=== PATIENT | male | born 1985 | race African-American/Black ===

== ENCOUNTER 2016-08-06 18:15 | Emergency (ER) | payer SELFPAY ==
[~2016-08-06] VITALS: Ht 172.7 cm; Wt 97.5 kg
[2016-08-06 19:41] LABS: BILIRUBIN,URINE NEGATIVE (NEG); GLUCOSE,URINE NEGATIVE (NEG); NITRITE,URINE NEGATIVE (NEG); PH,URINE 6.5; PROTEIN,URINE 30 mg/dL (NEG-TRACE)
[2016-08-06 19:51] LABS: BASO % 0 % (0-3); EOS % 2 % (0-3); HEMOGLOBIN 15.1 g/dL (13.0-17.5); LYMPH # 1.7 x10^3/uL (1.0-4.8); LYMPH % 19 % (24-48); MEAN CORPUSCULAR HEMOGLOBIN 31 pg (25-35); MEAN CORPUSCULAR HGB CONC 34 g/dL (31-37); MEAN CORPUSCULAR VOLUME 89 fL (79-100); MONO % 5 % (0-9); NEUT % 73 % (31-73); PLATELET COUNT 286 x10^3/uL (140-400); RED BLOOD COUNT 4.93 x10^6/uL (4.30-5.70); RED CELL DISTRIBUTION WIDTH 13.1 % (11.5-14.5); WHITE BLOOD COUNT 8.9 x10^3/uL (4.0-11.0)
[2016-08-06 19:54] LABS: BACTERIA,URINE 0 /HPF (0-FEW); SQUAMOUS EPITHELIAL CELL,UR FEW /LPF; WBC,URINE 0 /HPF (0-4)
[2016-08-06 20:04] LABS: CALCIUM 9.6 mg/dL (8.5-10.1); GFR 105.5
[2016-08-06 20:08] LABS: BARBITURATES NEG (NEG); BENZODIAZEPINES NEG (NEG); CANNABINOIDS POS (NEG); COCAINE NEG (NEG); ETHANOL, URINE NEG (NEG); METHADONE NEG (NEG); OPIATES NEG (NEG); PHENCYCLIDINE POS (NEG)
--- NOTE | 2016-08-06 20:51 | RAD ---
PROCEDURE Left elbow, three views. HISTORY Nontraumatic pain to the left elbow. COMPARISON None. FINDINGS There is no dislocation. There is acute fracture of the proximal radial head. The fracture appears traumatic but would correlate with additional history. Two separate longitudinal fracture lines are seen. Fracture is nondisplaced. There is intra-articular extension of the fracture. Small lipohemarthrosis is seen. The mineralization is normal. No soft tissue swelling is seen. IMPRESSION Acute nondisplaced fracture of the proximal radial head. Electronically signed by: Ayush Olson MD (Aug 06, 2016 20:50:17)
[2016-08-06] MEDS ORDERED: NAPROXEN 500 MG TABLET PO ONE (21:45)
[2016-08-06 21:58] VITALS: BP 142/93
[2016-08-06] MEDS ORDERED: BACITRACIN/POLYMYXIN B TOPICAL OINT 15GM TUBE. TP ONE (22:00)
--- NOTE | 2016-08-06 22:53 | ED.ADGEN ---
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 Patient states that he got into a verbal altercation yesterday after work, after which he began drinking and smoking marijuana and PCP. Patient states he drinks of 424 pack of beer or a bottle of liquor daily. He denies experiencing withdrawal symptoms when he stopped raking previously, he states his last drink was this morning, states that he has been in detox previously but it was "years ago". He states that he experienced some agitation and is currently experiencing pain in his left elbow and in his right leg . Patient states that he has a previous fracture in the right leg, and points to 2 small areas of irritation on the right lower extremity where he states he is experiencing pain and swelling. He is not certain how this injury occurred. He initially told the nurse that this occurred a week ago, but he tells me that he first noted it yesterday. He denies striking his head or having any loss of consciousness. Patient's episode of agitation was witnessed by his mother, who is present in the ED at this time. Patient states that he is seeking a detox program for his polysubstance abuse. He denies any chest pain, any shortness breath, any nausea or vomiting, any focal weakness, numbness or tingling, any GI or complaints. Review of Systems Review of Systems Constitutional: Denies fever or chills. [] Eyes: Denies change in visual acuity. [] HENT: Denies nasal congestion or sore throat. [] Respiratory: Denies cough or shortness of breath. [] Cardiovascular: Denies chest pain or edema. [] GI: Denies abdominal pain, nausea, vomiting, bloody stools or diarrhea. [] : Denies dysuria. [] Musculoskeletal: Denies back pain, pain in the left elbow and right lower extremity. Integument: Denies rash. [] Neurologic: Denies headache, focal weakness or sensory changes. [] Endocrine: Denies polyuria or polydipsia. [] Lymphatic: Denies swollen glands. [] Psychiatric: Denies depression or anxiety. [] Current Medications Current Medications Current Medications Medications (Trade) Dose Ordered Sig/Nima Start Time Stop Time Status Last Admin Dose Admin Bacitracin/ Polymyxin B Sulfate (Polysporin) 1 kaylynn 1X ONCE 08/06/16 22:00 08/06/16 22:01 DC 08/06/16 22:02 1 KAYLYNN Naproxen (Naprosyn) 500 mg 1X ONCE 08/06/16 21:45 08/06/16 21:46 DC 08/06/16 21:35 500 MG Allergies Allergies Allergies Coded Allergies Type Severity Reaction Last Updated Verified No Known Drug Allergies 11/21/14 No Physical Exam Physical Exam Constitutional: Well developed, well nourished, slightly anxious in appearance, non-toxic appearance. [] HENT: Normocephalic, atraumatic, bilateral external ears normal, oropharynx moist, no oral exudates, nose normal. [] Eyes: PERRLA, EOMI, conjunctiva normal, no discharge. [] Neck: Normal range of motion, no tenderness, supple, no stridor. [] Cardiovascular:Heart rate regular rhythm, no murmur , S1, S2, no rubs or gallops. [] Lungs & Thorax: Bilateral breath sounds clear to auscultation, no wheezing, rhonchi, rales. No chest wall tenderness or crepitus. [] Abdomen: Bowel sounds normal, soft, no tenderness, no rebound, rigidity, no guarding, no masses, no pulsatile masses. [] Skin: Warm, dry, no erythema, no rash. [] Back: No tenderness, no CVA tenderness. [] Extremities: Patient with tenderness to palpation at the medial elbow, no external signs of trauma, no tenderness to palpation other locations with full range of motion of the hand, wrist and shoulder, patient noted to have 2 small areas with dried skin in place, which are circular in nature, [id number] located in the pretibial region of his distal right leg, appears though they may have been previous insect bites, no evidence of abscess formation, induration, lymphangitisno cyanosis, no clubbing, ROM intact, no edema. [] Neurologic: Alert and oriented X 3, normal motor function, normal sensory function, no focal deficits noted. [] Psychologic: Affect normal, judgement normal, anxious. Current Patient Data Vital Signs Vital Signs Date Time Temp Pulse Resp B/P Pulse Ox O2 Delivery O2 Flow Rate FiO2 08/06/16 20:40 87 145/90 95 Room Air 08/06/16 18:50 97.9 16 97.9 Lab Values Laboratory Tests Test 08/06/16 19:00 08/06/16 19:41 Urine Collection Type Unknown Urine Color Yellow Urine Clarity Clear Urine pH 6.5 Urine Specific [place] 1.020 Urine Protein 30mg/dL (NEG-TRACE) Urine Glucose (UA) Negativemg/dL (NEG) Urine Ketones (Stick) Negativemg/dL (NEG) Urine Blood Small (NEG) Urine Nitrite Negative (NEG) Urine Bilirubin Negative (NEG) Urine Urobilinogen Dipstick 1.0mg/dL (0.2 mg/dL) Urine Leukocyte Esterase Negative (NEG) Urine RBC 3-5/HPF (0-2) Urine WBC 0/HPF (0-4) Urine Squamous Epithelial Cells Few/LPF Urine Bacteria 0/HPF (0-FEW) Urine Mucus Marked/LPF White Blood Count 8.9x10^3/uL (4.0-11.0) Red Blood Count 4.93x10^6/uL (4.30-5.70) Hemoglobin 15.1g/dL (13.0-17.5) Hematocrit 44.0% (39.0-53.0) Mean Corpuscular Volume 89fL (79-100) Mean Corpuscular Hemoglobin 31pg (25-35) Mean Corpuscular Hemoglobin Concent 34g/dL (31-37) Red Cell Distribution Width 13.1% (11.5-14.5) Platelet Count 286x10^3/uL (140-400) Neutrophils (%) (Auto) 73% (31-73) Lymphocytes (%) (Auto) 19% (24-48) L Monocytes (%) (Auto) 5% (0-9) Eosinophils (%) (Auto) 2% (0-3) Basophils (%) (Auto) 0% (0-3) Neutrophils # (Auto) 6.5x10^3uL (1.8-7.7) Lymphocytes # (Auto) 1.7x10^3/uL (1.0-4.8) Monocytes # (Auto) 0.5x10^3/uL (0.0-1.1) Eosinophils # (Auto) 0.2x10^3/uL (0.0-0.7) Basophils # (Auto) 0.0x10^3/uL (0.0-0.2) Sodium Level 142mmol/L (136-145) Potassium Level 4.0mmol/L (3.5-5.1) Chloride Level 105mmol/L (98-107) Carbon Dioxide Level 25mmol/L (21-32) Anion Gap 12 (6-14) Blood Urea Nitrogen 13mg/dL (8-26) Creatinine 1.0mg/dL (0.7-1.3) Estimated GFR (Cockcroft-Gault) 105.5 Glucose Level 84mg/dL (70-99) Calcium Level 9.6mg/dL (8.5-10.1) Urine Opiates Screen Neg (NEG) Urine Methadone Screen Neg (NEG) Urine Barbiturates Neg (NEG) Urine Phencyclidine Screen Pos (NEG) Urine Amphetamine/Methamphetamine Neg (NEG) Urine Benzodiazepines Screen Neg (NEG) Urine Cocaine Screen Neg (NEG) Urine Cannabinoids Screen Pos (NEG) Ethyl Alcohol Level < 10mg/dL (0-10) Urine Ethyl Alcohol Neg (NEG) Laboratory Tests 08/06/16 19:41 Laboratory Tests 08/06/16 19:41 EKG EKG EC: Sinus rhythm, heart rate 86 beats minute, upright axis, QTC of 388, UT 152, QRS of 78, mild baseline artifact noted, no ST elevations or depressions , no evidence of acute ST abnormalities. As interpreted by me. [] Radiology/Procedures Radiology/Procedures [] [facility] [address] [place] [address] IMAGING REPORT Signed PATIENT: WINSOME ARANDA ACCOUNT: [id number] : 1985 LOCATION: ER AGE: 31 SEX: M EXAM STATUS: PRE ER ORD. PHYSICIAN: ALLEN GOODRICH DO REASON: Pain PROCEDURE: ELBOW LEFT 3V PROCEDURE Left elbow, three views. HISTORY Nontraumatic pain to the left elbow. COMPARISON None. FINDINGS There is no dislocation. There is acute fracture of the proximal radial head. The fracture appears traumatic but would correlate with additional history. Two separate longitudinal fracture lines are seen. Fracture is nondisplaced. There is intra-articular extension of the fracture. Small lipohemarthrosis is seen. The mineralization is normal. No soft tissue swelling is seen. IMPRESSION Acute nondisplaced fracture of the proximal radial head. Electronically signed by: Ayush Olson MD (Aug 06, 2016 20:50:17) DICTATED and SIGNED BY: AYUSH OLSON MD DATE: 08/06/162049 CC: ALLEN GOODRICH DO; NO PCP ~ Right tib-fib x-ray: 2 view: Patient with healed fracture of the distal fibula, with a large callus formation, no evidence of acute fracture or subluxation, no evidence of soft tissue abnormalities. As interpreted by me. Left forearm x-ray: 2 view: Patient with noted proximal head fracture which is nondisplaced, no other abnormalities identified. As interpreted by me. Course & Med Decision Making Course & Med Decision Making Pertinent Labs and Imaging studies reviewed. (See chart for details) Patient is denying any suicidal or homicidal ideations, any auditory or visual hallucinations. After discussion at bedside, patient is agreeable to receiving basic laboratory studies, to ensure that he is medically cleared for a detox program. Patient provided urine, and blood specimens, which did not reveal any evidence of acutely concerning findings, aside from his drug screen positive for PCP and marijuana as the patient did report. Patient's alcohol level is less than 10, as stated he has vital signs within normal limits, and is resting completely at this time, less anxious after our discussion and his medical clearance. X-ray reveals acute proximal radial head fracture, no other fractures or other abnormalities identified on patient's imaging, or examination. Findings as above discussed with Dr. Mathew of orthopedics, who recommends sling for the patient, and follow-up with orthopedics. I discussed with the patient, he received naproxen the ED, was placed in a sling with affect. Patient was evaluated by the psychiatric assessment team in the emergency department, and an inpatient detoxification bed was arranged. Regarding patient's right lower shoulder pain, there are 2 small areas of dried skin with mild irritation, no evidence of cellulitis or overlying infection, patient is mildly tender to palpation of the area, he does correspond where he has a large callus from a previous fracture, May discussed with patient that the "nerve" pain that he is experiencing this area is likely consistent with his previous injury. No evidence of a significant infection or other concerning findings identified. Patient voices understanding with this finding, he is agreeable with the plan to be discharged home with his mother, who will then taken to the detox facility for enrollment. He was given clear and detailed return instructions for both his substance abuse and his radial head fracture, discharged home with his mother in stable condition with plan as stated. Dragon Disclaimer Dragon Disclaimer This electronic medical record was generated, in whole or in part, using a voice recognition dictation system. Departure Impression: Primary Impression: Fracture of proximal end of radius Additional Impression: Substance abuse Disposition: 01 HOME, SELF-CARE Condition: IMPROVED Problem Qualifiers ALLEN GOODRICH DO Aug 06, 2016 22:53
--- NOTE | 2016-08-07 06:44 | EKG ---
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
--- NOTE | 2016-08-07 08:40 | RAD ---
Right tibia and fibula, 2 views, 08/06/2016: History: Pain Comparison is made to a study from 12/16/2014. There is an old healed fracture of the distal fibula. There is a prominent ossification involving the interosseous membrane between the distal fibula and tibia. This abundant callus and hypertrophic ossification has developed since the previous exam. No acute fracture or dislocation is identified. Nonspecific subcutaneous edema is noted anterolaterally in the proximal to mid aspect of the lower leg. IMPRESSION: 1. Old posttraumatic changes involving the distal fibula as described above. 2. No acute bony abnormality is detected.
--- NOTE | 2016-08-07 08:58 | RAD ---
Left forearm, 2 views, 08/06/2016: History: Radial head fracture This study is correlated with elbow radiographs from earlier in the day. Again noted is a radial head fracture. No significant displacement is evident. There is only slight depression of a fragment involving the articular surface. No other fracture is identified. There is soft tissue swelling along the posterior aspect of the forearm. IMPRESSION: Acute radial head fracture.
== END 2016-08-06 22:12 | disposition home or self-care (01) ==
LOC: ER 18:15
DX: S52.102A Unspecified fracture of upper end of left radius, initial encounter for closed fracture (principal); F19.10 Other psychoactive substance abuse, uncomplicated; F12.10 Cannabis abuse, uncomplicated; F16.10 Hallucinogen abuse, uncomplicated; M79.89 Other specified soft tissue disorders; X58.XXXA Exposure to other specified factors, initial encounter; Y93.89 Activity, other specified; Y92.89 Other specified places as the place of occurrence of the external cause; Y99.8 Other external cause status
CPT/HCPCS: 36415; 73080; 73090; 73590; 80048; 80305; 80320; 81001; 85027; 93005; G0480; G0481; 99285-25

== ENCOUNTER 2016-08-22 13:59 | Emergency (ER) | payer SELFPAY ==
[~2016-08-22] VITALS: Ht 172.7 cm; Wt 95.3 kg
--- NOTE | 2016-08-22 14:07 | PHYS DOC ---
Past Medical History Past Medical History: No Pertinent History Past Surgical History: Tonsillectomy Alcohol Use: Occasionally Drug Use: Marijuana, Phencyclidine Adult General HPI HPI Patient is a 31 year old -[place] male who presents with status. Cranial EMS he was outside the [facility] on the sidewalk unresponsive. He admits that he was smoking PCP. He denies any other usage to me. When I ask him how he feels he states "I'm just coming down". He states he is on antibiotic for his spider bite on his right leg. Otherwise he states is on no other medications. Review of Systems Review of Systems Constitutional: Denies fever or chills [] Eyes: Denies change in visual acuity, redness, or eye pain [] HENT: Denies nasal congestion or sore throat [] Respiratory: Denies cough or shortness of breath [] Cardiovascular: No additional information not addressed in HPI [] GI: Denies abdominal pain, nausea, vomiting, bloody stools or diarrhea [] : Denies dysuria or hematuria [] Musculoskeletal: Denies back pain or joint pain [] Integument: Denies rash or skin lesions [] Neurologic: Denies headache, focal weakness or sensory changes [] Endocrine: Denies polyuria or polydipsia [] Current Medications Current Medications Current Medications Medications (Trade) Dose Ordered Sig/Nima Start Time Stop Time Status Last Admin Dose Admin Lorazepam (Ativan) 2 mg 1X ONCE 08/22/16 14:15 08/22/16 14:23 DC Olanzapine 5 mg 5 mg 1X ONCE 08/22/16 15:00 08/22/16 15:01 DC Sodium Chloride (Iv Sodium Chloride 0.9% 1000ml Bag) 1,000 ml @ 1,000 mls/hr 1X ONCE 08/22/16 19:00 08/22/16 19:59 DC 08/22/16 18:45 1,000 MLS/HR Allergies Allergies Allergies Coded Allergies Type Severity Reaction Last Updated Verified No Known Drug Allergies 11/21/14 No Physical Exam Physical Exam Constitutional: Well developed, well nourished, no acute distress, non-toxic appearance. [] HENT: Normocephalic, atraumatic, bilateral external ears normal, oropharynx moist, no oral exudates, nose normal. [] Eyes: PERRLA, EOMI, conjunctiva normal, no discharge. [] Neck: Normal range of motion, no tenderness, supple, no stridor. [] Cardiovascular:Heart rate regular rhythm, no murmur [] Lungs & Thorax: Bilateral breath sounds clear to auscultation [] Abdomen: Bowel sounds normal, soft, no tenderness, no masses, no pulsatile masses. [] Skin: Warm, dry, no erythema, no rash. [] Back: No tenderness, no CVA tenderness. [] Extremities: No tenderness, no cyanosis, no clubbing, ROM intact, no edema. [] Neurologic: Alert and responding, normal motor function, normal sensory function , no focal deficits noted. [] Psychologic: Agitated appearing. [] Current Patient Data Vital Signs Vital Signs Date Time Temp Pulse Resp B/P Pulse Ox O2 Delivery O2 Flow Rate FiO2 08/22/16 14:54 102 20 151/91 93 Room Air 08/22/16 13:59 98.6 98.6 Lab Values Laboratory Tests Test 08/22/16 17:20 08/22/16 17:40 White Blood Count 9.0x10^3/uL (4.0-11.0) Red Blood Count 5.07x10^6/uL (4.30-5.70) Hemoglobin 15.4g/dL (13.0-17.5) Hematocrit 46.1% (39.0-53.0) Mean Corpuscular Volume 91fL (79-100) Mean Corpuscular Hemoglobin 30pg (25-35) Mean Corpuscular Hemoglobin Concent 33g/dL (31-37) Red Cell Distribution Width 13.1% (11.5-14.5) Platelet Count 323x10^3/uL (140-400) Neutrophils (%) (Auto) 71% (31-73) Lymphocytes (%) (Auto) 20% (24-48) L Monocytes (%) (Auto) 4% (0-9) Eosinophils (%) (Auto) 4% (0-3) H Basophils (%) (Auto) 1% (0-3) Neutrophils # (Auto) 6.4x10^3uL (1.8-7.7) Lymphocytes # (Auto) 1.8x10^3/uL (1.0-4.8) Monocytes # (Auto) 0.4x10^3/uL (0.0-1.1) Eosinophils # (Auto) 0.3x10^3/uL (0.0-0.7) Basophils # (Auto) 0.1x10^3/uL (0.0-0.2) Urine Collection Type Unknown Urine Color Yellow Urine Clarity Clear Urine pH 6.0 Urine Specific [place] 1.010 Urine Protein Negativemg/dL (NEG-TRACE) Urine Glucose (UA) Negativemg/dL (NEG) Urine Ketones (Stick) Negativemg/dL (NEG) Urine Blood Trace (NEG) Urine Nitrite Negative (NEG) Urine Bilirubin Negative (NEG) Urine Urobilinogen Dipstick 0.2mg/dL (0.2 mg/dL) Urine Leukocyte Esterase Negative (NEG) Urine RBC 0/HPF (0-2) Urine WBC 0/HPF (0-4) Urine Squamous Epithelial Cells Occ/LPF Urine Bacteria 0/HPF (0-FEW) Urine Hyaline Casts Occasional/HPF Urine Mucus Slight/LPF Sodium Level 133mmol/L (136-145) L Potassium Level 4.3mmol/L (3.5-5.1) Chloride Level 98mmol/L (98-107) Carbon Dioxide Level 23mmol/L (21-32) Anion Gap 12 (6-14) Blood Urea Nitrogen 11mg/dL (8-26) Creatinine 1.1mg/dL (0.7-1.3) Estimated GFR (Cockcroft-Gault) 94.5 Glucose Level 90mg/dL (70-99) Calcium Level 9.8mg/dL (8.5-10.1) Magnesium Level 2.1mg/dL (1.8-2.4) Total Bilirubin 0.5mg/dL (0.2-1.0) Direct Bilirubin 0.2mg/dL (0.0-0.2) Aspartate Amino Transferase (AST) 72U/L (15-37) H Alanine Aminotransferase (ALT) 28U/L (16-63) Alkaline Phosphatase 151U/L (46-116) H Ammonia 17mcmol/L (11-34) Creatine Kinase 3346U/L (39-308) H Creatine Kinase MB (Mass) 5.8ng/mL (0.0-3.6) H Creatine Kinase MB Relative Index 0.2% (0-4) Troponin I Quantitative < 0.017ng/mL (0.000-0.055) CY-Jgn-H-Type Natriuretic Peptide 25pg/mL (0-124) Total Protein 9.1g/dL (6.4-8.2) H Albumin 4.1g/dL (3.4-5.0) Salicylates Level < 2.8mg/dL (2.8-20.0) L Salicylate Last Dose Date Unk Salicylate Last Dose Time Unk Urine Opiates Screen Neg (NEG) Urine Methadone Screen Neg (NEG) Acetaminophen Level < 10mcg/ml (10-30) L Acetaminophen Last Dose Date Unk Acetaminophen Last Dose Time Unk Urine Barbiturates Neg (NEG) Urine Phencyclidine Screen Pos (NEG) Urine Amphetamine/Methamphetamine Neg (NEG) Urine Benzodiazepines Screen Neg (NEG) Urine Cocaine Screen Neg (NEG) Urine Cannabinoids Screen Neg (NEG) Ethyl Alcohol Level < 10mg/dL (0-10) Urine Ethyl Alcohol Pos (NEG) Prothrombin Time 13.2SEC (11.7-14.0) Prothrombin Time INR 1.1 (0.8-1.1) PTT 27SEC (24-38) Laboratory Tests 08/22/16 17:20 Laboratory Tests 08/22/16 17:20 EKG EKG [] Radiology/Procedures Radiology/Procedures [] Impressions: PCP abuse Dehydration Course & Med Decision Making Course & Med Decision Making Pertinent Labs and Imaging studies reviewed. (See chart for details) She had an elevated CK level 3000, his urine did not show any acute abnormalities. He spent approximately 6 hours here with arrival of police and gave him the option of going to rehabilitation since mom's insisting on it. He received 2 L of normal saline he is been appropriate in the ER. He is being escorted by officers to [place] for rehabilitation. He is instructed to return to ER if he has any T colored urine, abdominal pain, confusion, or other concerns. He is also instructed to drink plenty of water tonight to stay well- hydrated and flush his kidneys out. He is agreeable plans being discharged with the officers in stable condition at this time with the agreement to family. Dragon Disclaimer Dragon Disclaimer This electronic medical record was generated, in whole or in part, using a voice recognition dictation system. Departure Departure Impression: Primary Impression: Substance abuse Disposition: 01 HOME, SELF-CARE Condition: STABLE Referrals: NO PCP (PCP) Patient Instructions: Dehydration, Adult, Substance Abuse-Brief Additional Instructions: You were seen today for your substance abuse and dehydration. He received 2 L of fluids. You need to continue drinking water tonight to make sure he stay well -hydrated. If you have any abdominal pain, dark tea-colored urine, confusion, chest pain or other concerns please return back to emergency department. ESTEVAN MORALES MD Aug 22, 2016 14:07
[2016-08-22] MEDS ORDERED: LORAZEPAM 2 MG/ML VIAL. IM ONE (14:15)
[2016-08-22 14:54] VITALS: BP 151/91
[2016-08-22] MEDS ORDERED: OLANZAPINE ZYDIS 5 MG TAB.RAPDIS PO ONE (15:00)
[2016-08-22 17:30] LABS: BASO # 0.1 x10^3/uL (0.0-0.2); BASO % 1 % (0-3); EOS % 4 % (0-3); HEMATOCRIT 46.1 % (39.0-53.0); HEMOGLOBIN 15.4 g/dL (13.0-17.5); LYMPH # 1.8 x10^3/uL (1.0-4.8); LYMPH % 20 % (24-48); MEAN CORPUSCULAR HEMOGLOBIN 30 pg (25-35); MEAN CORPUSCULAR HGB CONC 33 g/dL (31-37); MEAN CORPUSCULAR VOLUME 91 fL (79-100); MONO % 4 % (0-9); NEUT % 71 % (31-73); PLATELET COUNT 323 x10^3/uL (140-400); RED BLOOD COUNT 5.07 x10^6/uL (4.30-5.70); RED CELL DISTRIBUTION WIDTH 13.1 % (11.5-14.5)
[2016-08-22 17:32] LABS: BILIRUBIN,URINE NEGATIVE (NEG); GLUCOSE,URINE NEGATIVE (NEG); NITRITE,URINE NEGATIVE (NEG); PROTEIN,URINE NEGATIVE (NEG-TRACE); UROBILINOGEN,URINE 0.2 mg/dL (0.2 mg/dL)
[2016-08-22 17:41] LABS: BACTERIA,URINE 0 /HPF (0-FEW); RBC,URINE 0 /HPF (0-2); SQUAMOUS EPITHELIAL CELL,UR OCC /LPF; WBC,URINE 0 /HPF (0-4)
[2016-08-22 17:45] LABS: BARBITURATES NEG (NEG); BENZODIAZEPINES NEG (NEG); CANNABINOIDS NEG (NEG); COCAINE NEG (NEG); METHADONE NEG (NEG); OPIATES NEG (NEG); PHENCYCLIDINE POS (NEG)
[2016-08-22 17:59] LABS: CALCIUM 9.8 mg/dL (8.5-10.1); CREATININE 1.1 mg/dL (0.7-1.3); GFR 94.5; POTASSIUM 4.3 mmol/L (3.5-5.1)
[2016-08-22 18:00] LABS: INR 1.1 (0.8-1.1); PROTHROMBIN TIME PATIENT 13.2 SEC (11.7-14.0)
[2016-08-22 18:03] LABS: ETHANOL < 10 mg/dL (0-10)
[2016-08-22 18:05] LABS: ALBUMIN 4.1 g/dL (3.4-5.0); DIRECT BILIRUBIN 0.2 mg/dL (0.0-0.2); MAGNESIUM 2.1 mg/dL (1.8-2.4); TOTAL BILIRUBIN 0.5 mg/dL (0.2-1.0); TOTAL PROTEIN 9.1 g/dL (6.4-8.2)
[2016-08-22 18:10] LABS: CKMB MASS 5.8 ng/mL (0.0-3.6)
[2016-08-22] MEDS ORDERED: IV NORMAL SALINE 1000ML BAG 1,000 ML IV ONE ×2 (18:45→19:00)
== END 2016-08-22 20:35 | disposition home or self-care (01) ==
LOC: ER 14:02
DX: F16.10 Hallucinogen abuse, uncomplicated (principal); E86.0 Dehydration; F12.10 Cannabis abuse, uncomplicated
CPT/HCPCS: 36415; 80048; 80076; 80305; 80320; 81001; 82140; 82553; 83735; 83880; 84484; 85027; 85610; 85730; 96360; 96361; 99285; G6038; J7030; G0480; G0481; 80196

== ENCOUNTER 2016-12-23 18:00 | Emergency (ER) | payer SELFPAY ==
[2016-12-23 18:07] VITALS: BP 145/93
--- NOTE | 2016-12-23 18:30 | PHYS DOC ---
Past Medical History Past Medical History: No Pertinent History Past Surgical History: Tonsillectomy Alcohol Use: Occasionally Drug Use: Marijuana, Phencyclidine Adult General Chief Complaint Chief Complaint: substance abuse HPI HPI Patient is a 31 year old male who presents with suspected PCP use. Patient states he was minding his own business and EMS was called. Pt has h/o of PCP abuse, denies use today. Pt denies injury/SI/HI/illness. Pt is a&ox3 and does not want an evaluation. Pt has his billfold but lost his phone. Review of Systems Review of Systems Constitutional: Denies fever or chills [] Eyes: Denies change in visual acuity, redness, or eye pain [] HENT: Denies nasal congestion or sore throat [] Respiratory: Denies cough or shortness of breath [] Cardiovascular: Denies chest pain GI: Denies abdominal pain, nausea, vomiting, bloody stools or diarrhea [] : Denies dysuria or hematuria [] Musculoskeletal: Denies back pain or joint pain [] Integument: Denies rash or skin lesions [] Neurologic: Denies headache, focal weakness or sensory changes [] Endocrine: Denies polyuria or polydipsia [] Allergies Allergies Allergies Coded Allergies Type Severity Reaction Last Updated Verified No Known Drug Allergies 11/21/14 No Physical Exam Physical Exam Constitutional: Well developed, well nourished, no acute distress, non-toxic appearance. [] HENT: Normocephalic, atraumatic, bilateral external ears normal, oropharynx moist, no oral exudates, nose normal. [] Eyes: PERRLA, EOMI, conjunctiva normal, no discharge. [] Neck: Normal range of motion, no tenderness, supple, no stridor. [] Cardiovascular:Heart rate regular with regular rhythm, no murmur [] Lungs & Thorax: Bilateral breath sounds clear to auscultation [] Abdomen: Bowel sounds normal, soft, no tenderness, no masses, no pulsatile masses. [] Skin: Warm, dry, no erythema, no rash. [] Back: No tenderness, no CVA tenderness. [] Extremities: No tenderness, no cyanosis, no clubbing, ROM intact, no edema. [] Neurologic: Alert and oriented X 3, normal motor function, normal sensory function, no focal deficits noted. [] Psychologic: Denies SI/HI Current Patient Data Vital Signs Vital Signs Date Time Temp Pulse Resp B/P (MAP) Pulse Ox O2 Delivery O2 Flow Rate FiO2 12/23/16 18:07 98.5 104 18 145/93 (110) 97 Room Air 98.5 EKG EKG [] Radiology/Procedures Radiology/Procedures [] Course & Med Decision Making Course & Med Decision Making Pertinent Labs and Imaging studies reviewed. (See chart for details) I reviewed pt's medical record, h/o PCP abuse. Counseled pt that he shouldn't use illegal substances. Pt plans to take the bus home as his contact did not answer their phone. Dragon Disclaimer Dragon Disclaimer This electronic medical record was generated, in whole or in part, using a voice recognition dictation system. Departure Departure Impression: Primary Impression: Substance abuse Disposition: 01 HOME, SELF-CARE Condition: STABLE Referrals: NO PCP (PCP) Patient Instructions: Substance Abuse-Brief Additional Instructions: Please stop using illegal substances as it is dangerous for your health. NITIN RIVERA MD Dec 23, 2016 18:30
== END 2016-12-23 18:26 | disposition home or self-care (01) ==
LOC: ER 18:00
DX: F16.10 Hallucinogen abuse, uncomplicated (principal); F12.10 Cannabis abuse, uncomplicated
CPT/HCPCS: 99283

== ENCOUNTER 2016-12-25 00:08 | Emergency (ER) | payer SELFPAY ==
[~2016-12-25] VITALS: Ht 175.3 cm; Wt 86.2 kg
--- NOTE | 2016-12-25 00:19 | PHYS DOC ---
Past Medical History Past Surgical History: Tonsillectomy Alcohol Use: Occasionally Drug Use: Marijuana, Phencyclidine Social History Narrative: PCP Adult General Chief Complaint Chief Complaint: ALCOHOL INTOXICATION HPI HPI Patient is a 31 year old male who presents with altered behavior. He was found wandering around apartment complex [place] in random places. 911 was called and patient was found to be altered. He is brought in here for further evaluation. He is unable to answer any questions at this time. He is awake however. He was just here on Friday and Friday for substance abuse. He did admit to PCP use at that time. Tonight he did say that he had alcohol. He is answering any of my questions presently. Appears in no distress though it has no complaints. Review of Systems Review of Systems Patient is not answering any review of systems questions Current Medications Current Medications Current Medications Medications (Trade) Dose Ordered Sig/Nima Start Time Stop Time Status Last Admin Dose Admin Sodium Chloride 1,000 ml @ 1,000 mls/hr 1X ONCE 12/25/16 00:30 12/25/16 01:29 DC Allergies Allergies Allergies Coded Allergies Type Severity Reaction Last Updated Verified No Known Drug Allergies 11/21/14 No Physical Exam Physical Exam Constitutional: Well developed, well nourished, no acute distress, non-toxic appearance. HENT: Normocephalic, atraumatic, bilateral external ears normal, oropharynx moist, no oral exudates, nose normal. Eyes: PERRLA, EOMI, conjunctiva normal, no discharge. Neck: Normal range of motion, no tenderness, supple, no stridor. Cardiovascular:Heart rate regular rhythm, no murmur Lungs & Thorax: Bilateral breath sounds clear to auscultation Abdomen: Bowel sounds normal, soft, no tenderness, no masses, no pulsatile masses. Skin: Warm, dry, no erythema, no rash. Back: No tenderness, no CVA tenderness. Extremities: No tenderness, no cyanosis, no clubbing, ROM intact, no edema. Neurologic: He is awake. However does not answer my questions. He does move all extremities equally. Psychologic: non combative Current Patient Data Vital Signs Vital Signs Date Time Temp Pulse Resp B/P (MAP) Pulse Ox O2 Delivery O2 Flow Rate FiO2 12/25/16 00:23 98.1 61 18 122/74 (90) 97 Room Air 98.1 Lab Values Laboratory Tests Test 12/25/16 00:20 Urine Collection Type Unknown Urine Color Yellow Urine Clarity Clear Urine pH 5.5 Urine Specific [place] <=1.005 Urine Protein Negative mg/dL (NEG-TRACE) Urine Glucose (UA) Negative mg/dL (NEG) Urine Ketones (Stick) Negative mg/dL (NEG) Urine Blood Negative (NEG) Urine Nitrite Negative (NEG) Urine Bilirubin Negative (NEG) Urine Urobilinogen Dipstick 0.2 mg/dL (0.2 mg/dL) Urine Leukocyte Esterase Negative (NEG) Urine RBC 0 /HPF (0-2) Urine WBC 0 /HPF (0-4) Urine Squamous Epithelial Cells Occ /LPF Urine Bacteria 0 /HPF (0-FEW) Urine Opiates Screen Neg (NEG) Urine Methadone Screen Neg (NEG) Urine Barbiturates Neg (NEG) Urine Phencyclidine Screen Pos (NEG) Urine Amphetamine/Methamphetamine Neg (NEG) Urine Benzodiazepines Screen Neg (NEG) Urine Cocaine Screen Neg (NEG) Urine Cannabinoids Screen Pos (NEG) Urine Ethyl Alcohol Pos (NEG) Radiology/Procedures Radiology/Procedures [facility] [address] [place] [address] IMAGING REPORT Signed PATIENT: WINSOME ARANDA ACCOUNT: [id number] : 1985 LOCATION: ER AGE: 31 SEX: M EXAM STATUS: REG ER ORD. PHYSICIAN: JEM GARCIA MD REASON: altered PROCEDURE: CT HEAD WO CONTRAST PQRS Compliance Statement: One or more of the following individualized dose reduction techniques were utilized for this examination: 1. Automated exposure control 2. Adjustment of the mA and/or kV according to patient size 3. Use of iterative reconstruction technique CT HEAD WITHOUT CONTRAST History: ams; etoh Comparison: None. Procedure: Axial images are obtained of the head from the skull base through the vertex without IV contrast. Findings: The ventricles and sulci are normal for the patient's age. No mass-effect, midline shift, hemorrhage, extra-axial fluid collection, or obvious acute infarction is identified. Basilar cisterns are patent. Bone windows demonstrate no acute calvarial abnormality. Mild left frontal scalp hematoma. The visualized paranasal sinuses are clear. Mastoid air cells are well aerated. IMPRESSION: 1. No acute intracranial abnormality. 2. Mild left frontal scalp hematoma. Electronically signed by: Ayush Shell MD (12/25/2016 12:41 AM) [facility] DICTATED and SIGNED BY: AYUSH SHELL MD DATE: 12/25/16 0039 CC: JEM GARCIA MD; NO PCP ~ Course & Med Decision Making Course & Med Decision Making Evaluated patient upon arrival. 0045 AM: Patient eloped and was out running in the parking lot. CT head negative; UDS POS PCP and Ethanol. Patient returned to ED to retrieve his T shirt and then signed the AMA forms. Was able to ambulate without difficulty. Dragon Disclaimer Dragon Disclaimer This electronic medical record was generated, in whole or in part, using a voice recognition dictation system. Departure Departure Impression: Primary Impression: Substance abuse Disposition: 07 AGAINST MEDICAL ADVICE Referrals: NO PCP (PCP) JEM GARCIA MD Dec 25, 2016 00:19
[2016-12-25 00:23] VITALS: BP 122/74
[2016-12-25] MEDS ORDERED: IV NORMAL SALINE 1000ML BAG 1,000 ML IV ONE (00:30)
[2016-12-25 00:34] LABS: BILIRUBIN,URINE NEGATIVE (NEG); GLUCOSE,URINE NEGATIVE (NEG); NITRITE,URINE NEGATIVE (NEG); PH,URINE 5.5; PROTEIN,URINE NEGATIVE (NEG-TRACE); UROBILINOGEN,URINE 0.2 mg/dL (0.2 mg/dL)
[2016-12-25 00:38] LABS: BARBITURATES NEG (NEG); BENZODIAZEPINES NEG (NEG); CANNABINOIDS POS (NEG); COCAINE NEG (NEG); METHADONE NEG (NEG); OPIATES NEG (NEG); PHENCYCLIDINE POS (NEG)
--- NOTE | 2016-12-25 00:44 | RAD ---
PQRS Compliance Statement: One or more of the following individualized dose reduction techniques were utilized for this examination: 1. Automated exposure control 2. Adjustment of the mA and/or kV according to patient size 3. Use of iterative reconstruction technique CT HEAD WITHOUT CONTRAST History: ams; etoh Comparison: None. Procedure: Axial images are obtained of the head from the skull base through the vertex without IV contrast. Findings: The ventricles and sulci are normal for the patient's age. No mass-effect, midline shift, hemorrhage, extra-axial fluid collection, or obvious acute infarction is identified. Basilar cisterns are patent. Bone windows demonstrate no acute calvarial abnormality. Mild left frontal scalp hematoma. The visualized paranasal sinuses are clear. Mastoid air cells are well aerated. IMPRESSION: 1. No acute intracranial abnormality. 2. Mild left frontal scalp hematoma. Electronically signed by: Ayush Olson MD (12/25/2016 12:41 AM) [facility]
[2016-12-25 00:49] LABS: BACTERIA,URINE 0 /HPF (0-FEW); RBC,URINE 0 /HPF (0-2); SQUAMOUS EPITHELIAL CELL,UR OCC /LPF; WBC,URINE 0 /HPF (0-4)
== END 2016-12-25 00:48 | disposition left against medical advice (07) ==
LOC: ER 00:08
DX: F19.10 Other psychoactive substance abuse, uncomplicated (principal); F12.10 Cannabis abuse, uncomplicated; F16.10 Hallucinogen abuse, uncomplicated
CPT/HCPCS: 70450; 80307; 81001; 99285-25; G0479

== ENCOUNTER 2017-02-10 05:02 | Emergency (ER) | payer SELFPAY ==
[~2017-02-10] VITALS: Ht 172.7 cm; Wt 86.2 kg
--- NOTE | 2017-02-10 05:18 | PHYS DOC ---
Past Medical History Additional Past Medical Histor: Substance Abuse Past Surgical History: Tonsillectomy Smoking: Cigarettes Alcohol Use: Occasionally Drug Use: Marijuana, Phencyclidine Social History Narrative: Homeless Adult General Chief Complaint Chief Complaint: ABDOMINAL PAIN HPI HPI Patient is a 31 year old female who presents with abdominal "gurgling." Patient is presently homeless. He states he's developed this gurgling in the stomach the past few days. No vomiting. No diarrhea. No bloody stool." No blood in his urine. He last used alcohol yesterday, PCPs he smoked 1- 2 days ago. No IV drug use and does smoke tobacco. Review of Systems Review of Systems Constitutional: Denies fever or chills Eyes: Denies change in visual acuity, redness, or eye pain HENT: Denies nasal congestion or sore throat Respiratory: Denies cough or shortness of breath Cardiovascular: No chest pain GI: Denies abdominal pain, nausea, vomiting, bloody stools or diarrhea. : Denies dysuria or hematuria Musculoskeletal: Denies back pain or joint pain Integument: Denies rash or skin lesions Neurologic: Denies headache, focal weakness or sensory changes Current Medications Current Medications Current Medications Medications (Trade) Dose Ordered Sig/Nima Start Time Stop Time Status Last Admin Dose Admin Sodium Chloride 1,000 ml @ 1,000 mls/hr Q1H 02/10/17 05:30 02/10/17 06:29 02/10/17 05:29 1,000 MLS/HR Allergies Allergies Allergies Coded Allergies Type Severity Reaction Last Updated Verified No Known Drug Allergies 11/21/14 No Physical Exam Physical Exam Constitutional: Well developed, well nourished, no acute distress, non-toxic appearance. HENT: Normocephalic, atraumatic, bilateral external ears normal, oropharynx moist, no oral exudates, nose normal. Eyes: PERRLA, EOMI, conjunctiva normal, no discharge. Neck: Normal range of motion, no tenderness, supple, no stridor. Cardiovascular:Heart rate regular rhythm, no murmur Lungs & Thorax: Bilateral breath sounds clear to auscultation Abdomen: Bowel sounds normal, soft, no tenderness, no masses, no pulsatile masses. Skin: Warm, dry, no erythema, no rash. Back: No tenderness, no CVA tenderness. Extremities: No tenderness, no cyanosis, no clubbing, ROM intact, no edema. Neurologic: Alert and oriented X 3, normal motor function, normal sensory function, no focal deficits noted. Psychologic: Affect normal, judgement normal, mood normal. Current Patient Data Vital Signs Vital Signs Date Time Temp Pulse Resp B/P (MAP) Pulse Ox O2 Delivery O2 Flow Rate FiO2 02/10/17 05:18 97.7 60 18 138/89 (105) 98 Room Air 97.7 Lab Values Laboratory Tests Test 02/10/17 05:25 White Blood Count 6.7 x10^3/uL (4.0-11.0) Red Blood Count 4.79 x10^6/uL (4.30-5.70) Hemoglobin 14.6 g/dL (13.0-17.5) Hematocrit 43.8 % (39.0-53.0) Mean Corpuscular Volume 91 fL (79-100) Mean Corpuscular Hemoglobin 31 pg (25-35) Mean Corpuscular Hemoglobin Concent 33 g/dL (31-37) Red Cell Distribution Width 13.2 % (11.5-14.5) Platelet Count 252 x10^3/uL (140-400) Neutrophils (%) (Auto) 43 % (31-73) Lymphocytes (%) (Auto) 41 % (24-48) Monocytes (%) (Auto) 8 % (0-9) Eosinophils (%) (Auto) 7 % (0-3) H Basophils (%) (Auto) 1 % (0-3) Neutrophils # (Auto) 2.9 x10^3uL (1.8-7.7) Lymphocytes # (Auto) 2.7 x10^3/uL (1.0-4.8) Monocytes # (Auto) 0.5 x10^3/uL (0.0-1.1) Eosinophils # (Auto) 0.5 x10^3/uL (0.0-0.7) Basophils # (Auto) 0.1 x10^3/uL (0.0-0.2) Laboratory Tests 02/10/17 05:25 Course & Med Decision Making Course & Med Decision Making Evaluated patient. IV NS, NO pain at present. My differential for abdominal pain includes but is not limited to appendicitis; cholelithiasis or cholecystitis; renal stones; ureterolithiasis; pancreatitis; urinary tract infection; bowel obstruction; irritable bowel. At 0600 am: lab pending. Care of patient turned over at shift change to Dr Tsang. Werner Disclaimer Werner Disclaimer This electronic medical record was generated, in whole or in part, using a voice recognition dictation system. Departure Departure Impression: Primary Impression: Abdominal pain Additional Impression: Substance abuse Referrals: NO PCP (PCP) Problem Qualifiers Primary Impression: Abdominal pain Abdominal location: generalized Qualified Codes: R10.84 - Generalized abdominal pain JEM GARCIA MD Feb 10, 2017 05:18
[2017-02-10] MEDS ORDERED: IV NORMAL SALINE 1000ML BAG 1,000 ML IV SCH (05:30)
[2017-02-10 05:34] LABS: BASO # 0.1 x10^3/uL (0.0-0.2); BASO % 1 % (0-3); EOS % 7 % (0-3); HEMATOCRIT 43.8 % (39.0-53.0); HEMOGLOBIN 14.6 g/dL (13.0-17.5); LYMPH # 2.7 x10^3/uL (1.0-4.8); LYMPH % 41 % (24-48); MEAN CORPUSCULAR HEMOGLOBIN 31 pg (25-35); MEAN CORPUSCULAR HGB CONC 33 g/dL (31-37); MEAN CORPUSCULAR VOLUME 91 fL (79-100); MONO % 8 % (0-9); NEUT % 43 % (31-73); PLATELET COUNT 252 x10^3/uL (140-400); RED BLOOD COUNT 4.79 x10^6/uL (4.30-5.70); RED CELL DISTRIBUTION WIDTH 13.2 % (11.5-14.5); WHITE BLOOD COUNT 6.7 x10^3/uL (4.0-11.0)
[2017-02-10 05:51] LABS: CALCIUM 8.9 mg/dL (8.5-10.1); CREATININE 0.9 mg/dL (0.7-1.3); GFR 119.1; POTASSIUM 3.7 mmol/L (3.5-5.1)
[2017-02-10 05:57] LABS: ALBUMIN 3.7 g/dL (3.4-5.0); ALBUMIN/GLOBULIN RATIO 0.9 (1.0-1.7); TOTAL BILIRUBIN 0.5 mg/dL (0.2-1.0); TOTAL PROTEIN 7.9 g/dL (6.4-8.2)
[2017-02-10] MEDS ORDERED: ONDA4TAB10 PO (07:31)
[2017-02-10] MEDS ORDERED: RANI150T6 PO (07:31)
[2017-02-10 07:36] VITALS: BP 118/87
== END 2017-02-10 07:41 | disposition home or self-care (01) ==
LOC: ER 05:02
DX: R10.84 Generalized abdominal pain (principal); K21.9 Gastro-esophageal reflux disease without esophagitis; F12.10 Cannabis abuse, uncomplicated; F16.10 Hallucinogen abuse, uncomplicated; F17.210 Nicotine dependence, cigarettes, uncomplicated
CPT/HCPCS: 36415; 80053; 83690; 85025; 96360; 99284; J7030

== ENCOUNTER 2017-04-22 18:56 | Emergency (ER) | payer SELFPAY ==
[2017-04-22 19:36] LABS: GLUCOSE ISTAT 90 mg/dL (70-99); HEMATOCRIT ISTAT 42 % (37-52); POTASSIUM ISTAT 3.8 mmol/L (3.5-5.0); SODIUM ISTAT 140 mmol/L (135-145); TOT CO2 ISTAT 26 mmol/L (23-32)
== END 2017-04-22 20:19 | disposition home or self-care (01) ==
LOC: ER 18:56
DX: F16.10 Hallucinogen abuse, uncomplicated (principal); F12.10 Cannabis abuse, uncomplicated
CPT/HCPCS: 36415; 80047; 85014; 85018; 93005; 99283-25

== ENCOUNTER 2017-05-01 18:00 | Emergency (ER) | payer SELFPAY | END 2017-05-01 18:10 | disposition left against medical advice (07) | LOC: ER 18:10 | DX: F16.10 Hallucinogen abuse, uncomplicated (principal); F12.10 Cannabis abuse, uncomplicated; Z53.21 Procedure and treatment not carried out due to patient leaving prior to being seen by health care provider ==

== ENCOUNTER 2017-10-28 16:15 | Emergency (ER) | payer SELFPAY ==
[2017-10-28 17:16] LABS: BILIRUBIN,URINE NEGATIVE (NEG); CLARITY,URINE CLEAR; COLOR,URINE YELLOW; GLUCOSE,URINE NEGATIVE (NEG); NITRITE,URINE NEGATIVE (NEG); PH,URINE 5.5; PROTEIN,URINE NEGATIVE (NEG-TRACE); UROBILINOGEN,URINE 0.2 mg/dL (0.2 mg/dL)
[2017-10-28 17:23] LABS: BARBITURATES NEG (NEG); BENZODIAZEPINES NEG (NEG); CANNABINOIDS NEG (NEG); COCAINE NEG (NEG); METHADONE NEG (NEG); OPIATES NEG (NEG); PHENCYCLIDINE POS (NEG)
[2017-10-28 17:24] LABS: AMPHETAMINE/METHAMPHETAMINE NEG (NEG); ETHANOL, URINE POS (NEG)
[2017-10-28 17:25] LABS: ADD MAN DIFF? NO
[2017-10-28] MEDS: ACETAMINOPHEN 325 MG TABLET. PO (17:25)
[2017-10-28 17:28] LABS: BASO % 1 % (0-3); EOS # 0.2 x10^3/uL (0.0-0.7); EOS % 4 % (0-3); HEMATOCRIT 41.6 % (39.0-53.0); HEMOGLOBIN 13.5 g/dL (13.0-17.5); LYMPH # 1.4 x10^3/uL (1.0-4.8); LYMPH % 24 % (24-48); MEAN CORPUSCULAR HEMOGLOBIN 30 pg (25-35); MEAN CORPUSCULAR HGB CONC 33 g/dL (31-37); MEAN CORPUSCULAR VOLUME 93 fL (79-100); MONO # 0.2 x10^3/uL (0.0-1.1); MONO % 4 % (0-9); NEUT # 3.9 x10^3uL (1.8-7.7); NEUT % 68 % (31-73); PLATELET COUNT 241 x10^3/uL (140-400); RED BLOOD COUNT 4.48 x10^6/uL (4.30-5.70); RED CELL DISTRIBUTION WIDTH 13.4 % (11.5-14.5); WHITE BLOOD COUNT 5.8 x10^3/uL (4.0-11.0)
[2017-10-28 17:29] LABS: BACTERIA,URINE FEW /HPF (0-FEW); HYALINE CASTS, URINE OCCASIONAL /HPF; RBC,URINE OCC /HPF (0-2); SQUAMOUS EPITHELIAL CELL,UR OCC /LPF
[2017-10-28 17:43] LABS: ANION GAP 8 (6-14); BLOOD UREA NITROGEN 10 mg/dL (8-26); CALCIUM 9.4 mg/dL (8.5-10.1); CARBON DIOXIDE 28 mmol/L (21-32); CHLORIDE 106 mmol/L (98-107); CREATININE 0.8 mg/dL (0.7-1.3); GFR 135.6; GLUCOSE 81 mg/dL (70-99); POTASSIUM 3.9 mmol/L (3.5-5.1); SODIUM 142 mmol/L (136-145)
[2017-10-28 17:47] LABS: ACETAMIN < 2 mcg/ml (10-30); ETHANOL 23 mg/dL (0-10); SALIC < 2.8 mg/dL (2.8-20.0)
[2017-10-28 17:49] LABS: ALBUMIN 3.7 g/dL (3.4-5.0); ALK PHOS 110 U/L (46-116); ALT (SGPT) 23 U/L (16-63); AST (SGOT) 20 U/L (15-37); DIRECT BILIRUBIN 0.1 mg/dL (0.0-0.2); TOTAL BILIRUBIN 0.4 mg/dL (0.2-1.0); TOTAL PROTEIN 7.7 g/dL (6.4-8.2)
[2017-10-28 20:44] LABS: HIV AB SCREEN Nonreactive (Nonreactive)
== END 2017-10-28 18:38 | disposition home or self-care (01) ==
LOC: ER 16:15
DX: S02.2XXA Fracture of nasal bones, initial encounter for closed fracture (principal); S60.221A Contusion of right hand, initial encounter; F12.10 Cannabis abuse, uncomplicated; F19.10 Other psychoactive substance abuse, uncomplicated; Y04.0XXA Assault by unarmed brawl or fight, initial encounter; Y93.89 Activity, other specified; Y99.8 Other external cause status; Y92.89 Other specified places as the place of occurrence of the external cause
CPT/HCPCS: 36415; 70450; 70486; 80048; 80076; 80307; 80329; 81001; 85025; 86703; 99285-25; G0480; G6039

== ENCOUNTER 2018-01-30 22:54 | Emergency (ER) | payer SELFPAY ==
[~2018-01-30] VITALS: Ht 177.8 cm; Wt 79.4 kg
[~2018-01-30 22:54] MED LIST: ONDA4TAB10 PO; RANI150T21 PO
[2018-01-30 23:06] VITALS: BP 171/104
--- NOTE | 2018-01-31 01:07 | PHYS DOC ---
Past Medical History Past Medical History: Other Additional Past Medical Histor: Substance Abuse (etoh, marijuana, pcp) Past Surgical History: Tonsillectomy Alcohol Use: Heavy Drug Use: Marijuana, Phencyclidine Adult General Chief Complaint Chief Complaint: DRUG ABUSE HPI HPI Patient is a 32 year old -[place] male who arrives by EMS who presents with reported syncopal episode at local restaurant parking lot. Patient states he smoked marijuana laced with CP earlier this evening reports feeling anxious. Denies chest pains palpitations. Reports some dizziness or lightheadedness. Denies headache, head injury from fall or other injury complaint. Patient has long-standing history of drug abuse. He is previously looked into drug rehabilitation but has not followed up is agreeable to follow-up at this time. Patient declines further workup and evaluation the emergency department. States he feels fine prefers to follow-up with patient drug rehabilitation. [] Review of Systems Review of Systems Review symptoms as per history of present illness. [] All other systems were reviewed and found to be within normal limits, except as documented in this note. Allergies Allergies Allergies Coded Allergies Type Severity Reaction Last Updated Verified No Known Drug Allergies 11/21/14 No Physical Exam Physical Exam Constitutional: Well developed, well nourished, no acute distress, non-toxic appearance. [] HENT: Normocephalic, atraumatic, bilateral external ears normal, oropharynx moist, nose normal. [] Eyes: PERRLA, EOMI. [] Neck: Normal range of motion, no tenderness, supple, no stridor. [] Cardiovascular: Tachycardic,[] Lungs & Thorax: Respirations nonlabored, breath sounds clear. [] Abdomen: Bowel sounds normal, soft, no tenderness, no masses, no pulsatile masses. [] Skin: Warm, dry, no erythema, no rash. [] Back: No tenderness, no CVA tenderness. [] Extremities: No tenderness, no edema. [] Neurologic: Alert and oriented X 3, normal motor function, normal sensory function, no focal deficits noted. [] Psychologic: Affect increased anxiety/agitation [] Current Patient Data Vital Signs Vital Signs Date Time Temp Pulse Resp B/P (MAP) Pulse Ox O2 Delivery O2 Flow Rate FiO2 01/30/18 23:06 99.4 110 20 171/104 (126) 97 Room Air 99.4 EKG EKG [] Radiology/Procedures Radiology/Procedures [] Course & Med Decision Making Course & Med Decision Making Pertinent Labs and Imaging studies reviewed. (See chart for details) [Patient declines workup RN evaluation the emergency department. He verbalizes comprehension of risks, benefits and alternatives of care for to him in the emergency department and chooses to leave the emergency department AGAINST MEDICAL ADVICE.] Dragon Disclaimer Dragon Disclaimer This electronic medical record was generated, in whole or in part, using a voice recognition dictation system. Departure Departure Impression: Primary Impression: Dizziness Additional Impression: Drug abuse Disposition: 07 AGAINST MEDICAL ADVICE Condition: GUARDED Patient Instructions: Drug Abuse, FAQs, Dizziness, [id number] Additional Instructions: Return to the ED if you change your mind reqarding ED work up. Follow up with your PCP for outpatient drug rehab referral. Problem Qualifiers ISIS PHAM DO Jan 31, 2018 01:08
== END 2018-01-30 23:45 | disposition home or self-care (01) ==
LOC: ER 22:54
DX: F12.20 Cannabis dependence, uncomplicated (principal); R55 Syncope and collapse; R42 Dizziness and giddiness; R00.0 Tachycardia, unspecified; F10.20 Alcohol dependence, uncomplicated; Y90.9 Presence of alcohol in blood, level not specified; Z90.89 Acquired absence of other organs
CPT/HCPCS: 99284

== ENCOUNTER 2018-09-13 17:51 | Emergency (ER) | payer SELFPAY ==
[~2018-09-13] VITALS: Ht 172.7 cm; Wt 77.1 kg
[~2018-09-13 17:51] MED LIST changes: +RANI-376 PO; -RANI150T21 PO
[2018-09-13 18:10] VITALS: BP 144/87
[2018-09-13] MEDS ORDERED: AMOX1TAB61 PO (18:16)
--- NOTE | 2018-09-13 18:16 | PHYS DOC ---
Past Medical History Past Medical History: Other Additional Past Medical Histor: Substance Abuse (etoh, marijuana, pcp) (SILVIA MERIDA APRN) Past Surgical History: Tonsillectomy (SILVIA MERIDA APRN) Alcohol Use: Heavy Drug Use: Marijuana, Phencyclidine (SILVIA MERIDA APRN) Adult General Chief Complaint Chief Complaint: ANIMAL BITE HPI HPI Patient is a 33 year old male who presents to the ED today with dog bites to bilateral lower extremities. Patient states he was walking when unknown dog bit him. (SILVIA MERIDA APRN) Review of Systems Review of Systems Constitutional: Denies fever or chills [] Musculoskeletal: Denies back pain or joint pain [] Integument: Pupils dog bites to bilateral lower extremities Neurologic: Denies headache, focal weakness or sensory changes [] All other systems were reviewed and found to be within normal limits, except as documented in this note. (SILVIA MERIDA APRN) Current Medications Current Medications Current Medications Medications (Trade) Dose Ordered Sig/Nima Start Time Stop Time Status Last Admin Dose Admin Diphtheria/ Tetanus/Acell Pertussis (Boostrix) 0.5 ml ONCE ONCE 09/13/18 18:30 09/13/18 18:31 DC 09/13/18 18:48 0.5 ML (VIRAJ GONZALEZ DO) Allergies Allergies Allergies Coded Allergies Type Severity Reaction Last Updated Verified No Known Drug Allergies 11/21/14 No (VIRAJ GONZALEZ DO) Physical Exam Physical Exam Constitutional: Well developed, well nourished, no acute distress, non-toxic appearance. [] Skin: Bilateral lower extremities with multiple puncture wounds consistent of dog bites. No bleeding. None of them need any suturing. Neurovascular exam is intact to bilateral lower extremities. Back: No tenderness, no CVA tenderness. [] Extremities: No tenderness, no cyanosis, no clubbing, ROM intact, no edema. [] Neurologic: Alert and oriented X 3, normal motor function, normal sensory function, no focal deficits noted. [] Psychologic: Affect normal, judgement normal, mood normal. [] (SILVIA MERIDA APRN) Current Patient Data Vital Signs Vital Signs Date Time Temp Pulse Resp B/P (MAP) Pulse Ox O2 Delivery O2 Flow Rate FiO2 09/13/18 18:10 99.0 82 18 144/87 (106) 99 Room Air 99.0 (VIRAJ GONZALEZ DO) EKG EKG [] (SILVIA MERIDA APRN) Radiology/Procedures Radiology/Procedures [] (SILVIA MERIDA APRN) Course & Med Decision Making Course & Med Decision Making Pertinent Labs and Imaging studies reviewed. (See chart for details) This is a 33-year-old male patient presented to the ED today with Dr. Martinez bilateral lower extremities, none of them needed suturing. Tetanus updated. D ischarge and Augmentin. Follow-up with PCP in 1-2 weeks. Provided return precautions. (SILVIA MERIDA APRN) Dragon Disclaimer Dragon Disclaimer This electronic medical record was generated, in whole or in part, using a voice recognition dictation system. (SILVIA MERIDA APRN) Departure Departure Impression: Primary Impression: Dog bite of extremity Disposition: HOME, SELF-CARE Condition: STABLE Referrals: NO PCP (PCP) follow up with your doctor in 1-2 weeks Patient Instructions: Animal Bite, [id number] Additional Instructions: You were evaluated in the emergency room for dog bites to bilateral lower extremities. Please wash the areas with soap and water. Apply Neosporin to the areas as needed. Take the prescribed antibiotics until completed. Come back to the ED at any point symptoms worsen. Scripts Amoxicillin/Potassium Clav (AUGMENTIN 875-125 TABLET) 1 Each Tablet 1 TAB PO BID, #20 TAB Prov: SILVIA MERIDA APRN 09/13/18 Attending Signature Attending Signature I have reviewed the PA/ANODIZER's note and plan of care. I was available for consultation as needed during the patient's visit in the emergency department. I agree with the clinical impression, plan, and disposition. (VIRAJ GONZALEZ DO) SILVIA MERIDA APRN September 13, 2018 18:16 VIRAJ GONZALEZ DO September 14, 2018 04:37
[2018-09-13] MEDS ORDERED: DIPHTH,PERTUSS(ACELL),TET TOX 0.5 ML DISP.SYRIN. VAX IM ONE (18:30)
== END 2018-09-13 18:56 | disposition home or self-care (01) ==
LOC: ER 17:51
DX: S81.852A Open bite, left lower leg, initial encounter (principal); Z90.89 Acquired absence of other organs; F10.20 Alcohol dependence, uncomplicated; Y90.9 Presence of alcohol in blood, level not specified; W54.0XXA Bitten by dog, initial encounter; Y93.89 Activity, other specified; Y92.89 Other specified places as the place of occurrence of the external cause; Y99.8 Other external cause status
CPT/HCPCS: 90471; 90715; 99283

== ENCOUNTER 2021-01-05 19:19 | Emergency (ER) | payer SELFPAY ==
[~2021-01-05] VITALS: Ht 172.7 cm; Wt 104.6 kg
[~2021-01-05 19:19] MED LIST changes: +AMOX1TAB61 PO
[2021-01-05 19:24] VITALS: BP 120/96
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
[2021-01-05] MEDS ORDERED: NEOMY/BACITR/POLYMYXIN OINT PACKET. TP ONE (20:00)
== END 2021-01-05 20:01 | disposition home or self-care (01) ==
LOC: ER 19:19
DX: S30.810A Abrasion of lower back and pelvis, initial encounter (principal); Z87.891 Personal history of nicotine dependence; F10.20 Alcohol dependence, uncomplicated; Y90.9 Presence of alcohol in blood, level not specified; X58.XXXA Exposure to other specified factors, initial encounter; Y93.89 Activity, other specified; Y92.89 Other specified places as the place of occurrence of the external cause; Y99.8 Other external cause status
CPT/HCPCS: 99282

== ENCOUNTER 2021-02-22 14:16 | Emergency (ER) | payer SELFPAY ==
[~2021-02-22] VITALS: Ht 175.3 cm; Wt 109.0 kg
[2021-02-22] MEDS ORDERED: LIDOCAINE/EPI/TETRACAINE TOPICAL GEL 3 ML. TP ONE (15:45)
[2021-02-22] MEDS ORDERED: LIDOCAINE WITH 8.4% SOD BICARB 3 ML DISP.SYRIN. INJ ONE (15:45)
--- NOTE | 2021-02-22 15:59 | RAD ---
3 views the right elbow without comparison for fall, laceration. FINDINGS: There is no fracture, dislocation, or acute osseous abnormalities identified. No radiopaque foreign bodies are seen. IMPRESSION: 1. No acute osseous abnormalities. Electronically signed by: Baltazar Martinez MD (02/22/2021 3:57 PM) [id number]
[2021-02-22 16:41] VITALS: BP 131/85
--- NOTE | 2021-02-22 17:00 | PHYS DOC ---
Past Medical History Past Medical History: Other Additional Past Medical Histor: Substance Abuse (etoh, marijuana, pcp) (FUADSILVIA Mellissa [employer]) Past Surgical History: No Surgical History (SILVIA MERIDA Mellissa [employer]) Smoking Status: Former Smoker Alcohol Use: Heavy Drug Use: Marijuana, Phencyclidine (SILVIA MERIDA Mellissa [employer]) General Adult EDM: Chief Complaint: LACERATION/AVULSION HPI: HPI: Patient is a 35 year old male who presents to the ED with right elbow laceration that occurred after he tripped and fell while jogging. Patient denies any loss of consciousness. Denies hitting his head on the ground. (SILVIA MERIDA [employer]) Review of Systems: Review of Systems: Constitutional: Denies fever or chills. [] Musculoskeletal: Denies back pain or joint pain. [] Integument: Reports right elbow laceration Neurologic: Denies headache, focal weakness or sensory changes. [] Psychiatric: Denies depression or anxiety. [] (SILVIA MERIDA Mellissa [employer]) Heart Score: C/O Chest Pain: N/A Risk Factors: Risk Factors: DM, Current or recent (<one month) smoker, HTN, HLP, family hist ory of CAD, obesity. Risk Scores: Score 0 - 3: 2.5% MACE over next 6 weeks - Discharge Home Score 4 - 6: 20.3% MACE over next 6 weeks - Admit for Clinical Observation Score 7 - 10: 72.7% MACE over next 6 weeks - Early Invasive Strategies (JEREMILaSILVIA Mellissa [employer]) Current Medications: Current Medications Medications (Trade) Dose Ordered Sig/Nima Start Time Stop Time Status Last Admin Dose Admin Diphtheria/ Tetanus/Acell Pertussis (ADACEL TDap SYRINGE) 0.5 ml ONCE ONCE 02/22/21 17:00 02/22/21 17:01 UNV Lidocaine HCl (Buffered Lidocaine 1%) 3 ml 1X ONCE 02/22/21 15:45 02/22/21 15:46 DC 02/22/21 16:23 3 ML Tetracaine/ Epinephrine/ Lidocaine (Let (Uthg-[id number]-[id number]) Gel) 3 ml 1X ONCE 02/22/21 15:45 02/22/21 15:46 DC 02/22/21 16:18 3 ML (JEREMISILVIA Tovar [employer]) Allergies: Allergies: Allergies Coded Allergies Type Severity Reaction Last Updated Verified No Known Drug Allergies 11/21/14 No (JEREMILaSILVIA Mellissa [employer]) Physical Exam: PE: Constitutional: Well developed, well nourished, no acute distress, non-toxic appearance. [] Skin: Right elbow with a laceration approximately 3 cm long, there is no obvious tendon involvement, full range of motion to the right elbow including flexion and extension, plantarflexion and dorsiflexion of the right forearm. Adequate radial, medial, ulnar sensation to the right fingers. +2 right radial pulse. Cap refill less than 2 seconds the right fingers Back: No tenderness, no CVA tenderness. [] Extremities: No tenderness, no cyanosis, no clubbing, ROM intact, no edema. [] Neurologic: Alert and oriented X 3, normal motor function, normal sensory function, no focal deficits noted. [] Psychologic: Affect normal, judgement normal, mood normal. [] (FUADSILVIA Mellissa [employer]) Current Patient Data: Vital Signs: Vital Signs Date Time Temp Pulse Resp B/P (MAP) Pulse Ox O2 Delivery O2 Flow Rate FiO2 02/22/21 16:41 98.0 95 18 131/85 (100) 99 Room Air 98.0 (RAYASHANNONSILVIA Mellissa [employer]) EKG: EKG: [] (SILVIA MERIDA [employer]) Radiology/Procedures: Radiology/Procedures: []PROCEDURE: ELBOW RIGHT 3V 3 views the right elbow without comparison for fall, laceration. FINDINGS: There is no fracture, dislocation, or acute osseous abnormalities identified. No radiopaque foreign bodies are seen. IMPRESSION: 1. No acute osseous abnormalities. Electronically signed by: Baltazar Lobo MD (02/22/2021 3:57 PM) [id number] DICTATED and SIGNED BY: BALTAZAR LOBO MD DATE: 02/22/21 [id number] Laceration/Wound Repair Wound Location: Right elbow Wound's Depth, Shape: c Wound Length (cm): Approximately 3 cm Wound Explored: clean Irrigated w/ Saline (ccs): 30 Betadine Prep?: Yes Anesthesia: Let solution 3 cc then later on 1 mL of buffered lidocaine Wound Repaired With: Prolene Suture Size/Type: 5.0/interrupted sutures Number of Sutures: 7 Progress : Wound was covered with nonstick dressing (SILVIA MERIDA APRN) Course & Med Decision Making: Course & Med Decision Making Pertinent Labs and Imaging studies reviewed. (See chart for details) This a 35-year-old male patient presenting to the ED today with right elbow laceration that was closed by me as noted in procedures. Tetanus was updated. Wound care instructions and return precautions provided (SILVIA MERIDA APRN) Course & Med Decision Making I was the Attending physician on the above date of service of this patient. This patient was evaluated, examined, treated, and dispositioned from the emergency department by the mid-level practitioner. Although I was working at the time , no assistance was requested. Electronically signed, Mary Diaz DO (MARY DIAZ DO) Werner Disclaimer: Werner Disclaimer: This electronic medical record was generated, in whole or in part, using a voice recognition dictation system. (SILVIA MERIDA APRN) Departure Departure Impression: Primary Impression: Laceration of right elbow Qualified Codes: S51.011A - Laceration without foreign body of right elbow, initial encounter Additional Impression: Fall Qualified Codes: W19.XXXA - Unspecified fall, initial encounter Disposition: HOME / SELF CARE / HOMELESS Condition: STABLE Referrals: NO PCP (PCP) follow up with the ED or your doctor in 7 days for stitches to be removed Patient Instructions: Laceration Care, Adult Additional Instructions: You have a laceration to the right elbow that was closed with stitches, you can shower and wash the area once or twice a day. Apply Neosporin to the area twice a day. Keep the area clean and dry. Please remove the dressing from the laceration site tomorrow morning and leave it open to air if its not bleeding or draining. Please monitor the area for any signs of infection including but not limited to increased redness, warmth, yellow drainage from the area and return to the ED or see your own doctor if they occur. Come back to the ED or see your primary care doctor in 7 days for stitches to be removed SILVIA MERIDA APRN Feb 22, 2021 17:00 MARY DIAZ DO Feb 23, 2021 16:19
[2021-02-22] MEDS ORDERED: DIPH,PERTUSS(ACELL),TET VAC/PF 0.5 ML SYRINGE. VAX IM ONE (17:15)
== END 2021-02-22 17:08 | disposition home or self-care (01) ==
LOC: ER 14:16
DX: S51.011A Laceration without foreign body of right elbow, initial encounter (principal); Z87.891 Personal history of nicotine dependence; F10.20 Alcohol dependence, uncomplicated; Y90.9 Presence of alcohol in blood, level not specified; W01.0XXA Fall on same level from slipping, tripping and stumbling without subsequent striking against object, initial encounter; Y93.89 Activity, other specified; Y92.89 Other specified places as the place of occurrence of the external cause; Y99.8 Other external cause status
CPT/HCPCS: 12002; 73080; 99283; J3490